=== PATIENT | female | born 1995 | race Caucasian/White ===

== ENCOUNTER 2018-06-09 19:50 | Outpatient (CLI) | payer MEDICAID ==
[2018-06-09 20:27] LABS: APPEARANCE,URINE CLEAR; COLOR,URINE YELLOW; GLUCOSE, URINE NEGATIVE (NEGATIVE)
[2018-06-09 20:28] LABS: BILIRUBIN,URINE NEGATIVE (NEGATIVE); KETONES,URINE NEGATIVE (NEGATIVE); LEUKOCYTE ESTERASE,URINE SMALL (NEGATIVE); NITRITE,URINE NEGATIVE (NEGATIVE); PROTEIN,URINE NEGATIVE (NEGATIVE); URINE SPECIFIC GRAVITY 1.012; UROBILINOGEN,URINE NEGATIVE mg/dL (<2.0)
[2018-06-09] MEDS ORDERED: RINGERS SOLUTION,LACTATED 1,000 ML IV PRN (20:36)
[2018-06-09 20:37] LABS: URINE AMPHETAMINES SCREEN NEGATIVE; URINE BARBITURATES SCREEN NEGATIVE; URINE BENZODIAZEPINES SCREEN NEGATIVE; URINE COCAINE SCREEN NEGATIVE; URINE MARIJUANA (THC) SCREEN NEGATIVE; URINE METHADONE SCREEN NEGATIVE; URINE PHENCYCLIDINE SCREEN NEGATIVE
--- NOTE | 2018-06-09 23:09 | RADIOLOGY REPORT (SQ) ---
EXAM DESCRIPTION: US LIMITED COMPLETED DATE/TME: 06/09/2018 00:00 CLINICAL HISTORY: 22 years, Female, cervical length for contractions COMPARISON: EXAM DESCRIPTION: CLINICAL HISTORY: cervical length for contractions COMPARISON: None. FINDINGS: heart rate is 140 bpm. Cervix length is 23 mm. No placenta previa is seen. IMPRESSION: Cervix length as above. TECHNIQUE: LIMITATIONS: None. FINDINGS: IMPRESSION: 2010 [facility] [employer]- All Rights Reserved
== END 2018-06-09 23:21 | disposition home or self-care (01) ==
LOC: LC 19:50
PROVIDERS: ATTEND Obstetrics & Gynecology
PROC: 4A1HXCZ Monitoring of Products of Conception, Cardiac Rate, External Approach (ICD-10-PCS; principal; 2018-06-09)
DX: O47.03 False labor before 37 completed weeks of gestation, third trimester (principal); Z3A.32 32 weeks gestation of pregnancy
CPT/HCPCS: 59025; 76815; 80307; 81001

== ENCOUNTER 2018-06-11 02:32 | Inpatient (IN) | payer MEDICAID ==
[2018-06-11] MEDS ORDERED: BETAMET ACET/BETAMET NA INJ 6 MG/1 ML ONE ×2 (02:58→03:43)
[2018-06-11] MEDS ORDERED: AMPICILLIN SODIUM 2 GM in NORMAL SALINE 100 ML IV SCH (03:00)
[2018-06-11] MEDS ORDERED: ERYTHROMYCIN LACTOBIONATE 250 MG in NORMAL SALINE 100 ML IV SCH (03:00)
[2018-06-11] MEDS ORDERED: BETAMET ACET/BETAMET NA INJ 6 MG/1 ML IM ONE (03:02)
[2018-06-11] MEDS ORDERED: MAGNESIUM SULFATE 20 GM/500 ML RTUINJ IV PRN ×2 (03:02→03:04)
[2018-06-11] MEDS ORDERED: RINGERS SOLUTION,LACTATED 1,000 ML IV PRN (03:05)
[2018-06-11] MEDS ORDERED: RINGERS SOLUTION,LACTATED 1,000 ML IV ONE (03:05)
[2018-06-11] MEDS ORDERED: MAGNESIUM SULFATE 4 GM/100 ML RTUPB IV ONE (03:17)
[2018-06-11] MEDS ORDERED: AMPICILLIN SOD INJ 2 GM VIAL ONE (03:18)
[2018-06-11] MEDS ORDERED: MAGNESIUM SULFATE 20 GM/500 ML RTUINJ IV ONE (03:18)
[2018-06-11] MEDS ORDERED: AMPICILLIN SOD INJ 2 GM VIAL IM SCH (03:30)
[2018-06-11] MEDS ORDERED: AMPICILLIN SOD INJ 2 GM VIAL IV SCH (03:30)
[2018-06-11] MEDS ORDERED: ERYTHROMYCIN INJ 500 MG VIAL IV SCH (03:30)
[2018-06-11 03:38] LABS: HEMATOCRIT 38.5 % (36.0-47.0); HEMOGLOBIN 13.6 g/dL (12.0-15.5); MEAN CORPUSCULAR HEMOGLOBIN 30.3 pg (27.0-33.4); MEAN CORPUSCULAR HGB CONC 35.4 g/dL (32.0-36.0); MEAN CORPUSCULAR VOLUME 86 fl (80-97); PLATELET COUNT 356 10^3/uL (150-450); RED BLOOD COUNT 4.49 10^6/uL (3.72-5.28); RED CELL DISTRIBUTION WIDTH 13.9 % (11.5-14.0); WHITE BLOOD COUNT 22.7 10^3/uL (4.0-10.5)
[2018-06-11 03:55] LABS: ABSOLUTE MONOCYTES # (MANUAL) 1.6 10^3/uL (0.1-1.4); ABSOLUTE NEUTROPHILS# (MANUAL) 18.2 10^3/uL (1.7-8.2); BASOPHILS % (MANUAL) 0 % (0-2); EOSINOPHILS % (MANUAL) 0 % (0-6); LYMPHOCYTES % (MANUAL) 13 % (13-45); MONOCYTES % (MANUAL) 7 % (3-13); SEGMENTED NEUTROPHILS % (MAN) 80 % (42-78); TOTAL CELLS COUNTED 100
[2018-06-11 03:56] LABS: OVALOCYTES SLIGHT; PLATELET COMMENT ADEQUATE; POIKILOCYTOSIS SLIGHT; POLYCHROMASIA SLIGHT; SCHISTOCYTES SLIGHT
[2018-06-11] MEDS ORDERED: ONDANSETRON HCL INJ/PF 4 MG/2 ML SDV IV ONE (04:20)
[2018-06-11] MEDS ORDERED: ONDANSETRON HCL INJ/PF 4 MG/2 ML SDV ONE (04:22)
[2018-06-11] MEDS ORDERED: ERYTHROMYCIN BASE 250 MG TABLET PO ONE ×2 (05:13→05:25)
[2018-06-11] MEDS ORDERED: LIDOCAINE 1% INJ-PF (10 MG/ML) 30 ML SDV ONE (05:37)
[2018-06-11] MEDS ORDERED: MISOPROSTOL 0.2 MG TABLET ONE (05:37)
[2018-06-11] MEDS ORDERED: OXYTOCIN/NORMAL SALINE 20 UNIT/1,000 ML RTUINJ ONE (05:37)
[2018-06-11] MEDS ORDERED: EPHEDRINE SULFATE INJ 50 MG/1 ML AMPULE ONE (05:38)
[2018-06-11] MEDS ORDERED: FENTANYL/BUPIVACAINE/NS/PF 300 MCG/150 ML RTUINJ EPI ONE (05:39)
[2018-06-11] MEDS ORDERED: BUPIVACAINE HCL 0.5 % INJ/PF 30 ML SDV ONE (05:39)
[2018-06-11 06:25] LABS: CHLAM PCR NOT DETECTED (NOT DETECT); GON PCR NOT DETECTED (NOT DETECT)
--- NOTE | 2018-06-11 06:56 | Admission Physical ---
Datetime Report Generated by CPN: 06/11/2018 06:56 CURRENT ADMISSION Chief Complaint: Uterine Contractions; Suspected Ruptured Membranes Indication for Induction: Not Applicable Admit Impression : , Intrauterine ; Ruptured Membranes Admit Plan: Admit to Unit; Initiate Labor Protocol ALLERGIES Medication Allergies: No Medication Allergies: latex Latex: Latex Allergies Food Allergies: N/A Environmental Allergies: N/A OBSTETRICAL HISTORY EDC: 08/02/2018 00:00 : 1 Para: 0 Term: 0 : 0 SAB: 0 IAB: 0 Ectopic: 0 Livin Cesareans: 0 VBACs: 0 Multiple Births: 0 Gestational Diabetes: No Rh Sensitization: No Incompetent Cervix: No BRUNO: No Infertility: No ART Treatment: No Uterine Anomaly: No IUGR: No Hx Previous C/S: No Macrosomia: No Hx Loss/Stillborn: No PIH: No Hx : No Placenta Previa/Abruption: No Depression/PP Depression: No PTL/PROM: No Post Hemorrhage: No Current Procedures: Ultrasound Obstetrical History Comments: g1- current SEE RECORDS Alcohol: No Marijuana : No Cocaine: No Other Illicit Drugs: No Cigarettes: Never Smoker. [id number] MEDICAL HISTORY Diabetes: No Blood Transfusion: No Pulmonary Disease (Asthma, TB): No Breast Disease: No Hypertension: No Hand Bulldozer Surgery: No Heart Disease: No Hosp/Surgery: No Autoimmune Disorder: No Anesthetic Complications: No Kidney Disease: Yes Abnormal Pap Smear: No Neuro/Epilepsy: No Psychiatric Disorders: No Other Medical Diseases: No Hepatitis/Liver Disease: No Significant Family History: No Varicosities/Phlebitis: No Trauma/Violence : No Thyroid Dysfunction: No Medical History Comments: one kidney smaller and frequent kidney infections INFECTIOUS HISTORY Gonorrhea: No Genital Herpes: No Chlamydia: No Tuberculosis: No Syphilis: No Hepatitis: No HIV/AIDS Exposure: No Rash or Viral Illness: No HPV: No PHYSICAL EXAM General: Normal HEENT: Normal Neurologic: Normal Thyroid: Deferred Heart: Normal Lungs: Normal Breast: Deferred Back: Normal Abdomen: Normal Genitourinary Exam: Normal Extremities: Normal DTRs: Normal Pelvic Type: Adequate Vital Signs: Reviewed VAGINAL EXAM Dilatation: 1 Effacement: 70 Station: -1 Contraction Comments: q 1-2 MEMBRANES Membranes: Ruptured Amniotic Fluid Color: Clear FETUS A EGA: 32.4 Monitoring: External US FHR- Baseline: 145 Variability: Moderate 6-25bpm Accelerations: 15X15 Decelerations: None FHR Category: Category I Presentation: Vertex Admit Comment: 22yo at 32+4ega presents for regular uterine ctx and PPROM. PPROM clear fluid at 0200. Pt actively ctx q 1-2 minutes. In ER cvx was 1cm. Upon arrival to labor and delivery 3cm and 1 hour later 4cm/c/0. Due to concern for imminent delivery pt requested epidural and epidural given. All care labs done since records are not available until office in [facility]. Pt evacuate TO here for [place] since her mother was here. BMZ given, Mag sulfate for Neuroprotection. Amp/Erythro ordered for latency. vtx by US. Pt reports she had US on the day previously in her office. Anticipate . NICU aware of concern for unstoppable labor. Will continue to request her records PLANS FOR LABOR AND DELIVERY Labor and Delivery: None Pain Management: Epidural Feeding Preference: Breast Benefit of Breast Feed Discussed: Yes Circumcision: N/A INFORMED CONSENT Informed Consent Obtained: Vaginal Delivery; Risks, Benefits and Alternatives Discussed Signature: with User ID: [email or web address]
[2018-06-11] MEDS ORDERED: NA PHOS,M-B/NA PHOS,DI-BA (ADULT) 133 ML ENEMA PR PRN (09:42)
[2018-06-11] MEDS ORDERED: MEASLES,MUMPS&RUBELLA VACC/PF 0.5 ML VIAL SUBCUT PRN (09:42)
[2018-06-11] MEDS ORDERED: DIPH/PERTUSS(ACELL)/TETANUS VAC/PF 0.5 ML SYR (>=10YO) IM PRN (09:42)
[2018-06-11] MEDS ORDERED: PROMETHAZINE HCL 25 MG SUPP.RECT PR PRN (09:42)
[2018-06-11] MEDS ORDERED: DIPHENHYDRAMINE HCL 25 MG CAPSULE PO PRN (09:42)
[2018-06-11] MEDS ORDERED: PROMETHAZINE HCL INJ 25 MG/1 ML VIAL IV PRN (09:42)
[2018-06-11] MEDS ORDERED: BENZOCAINE/MENTHOL AEROSOL SPRAY 56 ML TOP PRN (09:42)
[2018-06-11] MEDS ORDERED: PSEUDOEPHEDRINE HCL 30 MG TABLET PO PRN (09:42)
[2018-06-11] MEDS ORDERED: PROMETHAZINE HCL 25 MG TABLET PO PRN (09:42)
[2018-06-11] MEDS ORDERED: ACETAMINOPHEN 650 MG SUPP.RECT PR PRN (09:42)
[2018-06-11] MEDS ORDERED: OXYTOCIN/NORMAL SALINE 20 UNIT/1,000 ML RTUINJ IV PRN (09:42)
[2018-06-11] MEDS ORDERED: DIBUCAINE 1% OINTMENT 28 GM TP PRN (09:42)
[2018-06-11] MEDS ORDERED: MAGNESIUM HYDROXIDE SUSP 30 ML UDCUP PO PRN (09:42)
[2018-06-11] MEDS ORDERED: GLYCERIN/WITCH HAZEL LEAF 1 EACH MED..PAD TP PRN (09:42)
[2018-06-11] MEDS ORDERED: MISOPROSTOL 0.2 MG TABLET PR ONE (09:46)
[2018-06-11] MEDS ORDERED: IBUPROFEN 800 MG TABLET ONE (09:56)
[2018-06-11] MEDS ORDERED: ACETAMINOPHEN WITH CODEINE #3 TABLET ONE (09:56)
[2018-06-11] MEDS ORDERED: ERYTHROMYCIN BASE 250 MG TABLET PO SCH (12:00)
--- NOTE | 2018-06-11 12:05 | Delivery Summary ---
Del Sum A-C Datetime Report Generated by CPN: 06/11/2018 12:04 DELIVERY PERSONNEL DELIVERY PERSONNEL: [id number] Delivery Doctor:: Sharmaine Benton CNM Nurse Trust And Estates Attorney Certified:: Sharmaine Benton CNM Labor and Delivery Nurse:: Pamela Su RNfront line leader Nurse:: YUSUF Cruz Lead Burner Helper:: Dr. Baldemar Guevara Nursery Nurse:: CAROLA Velez Tech/SUPERVISOR NEWSPAPER DELIVERIES: Jody Mcdermott, ELECTRIC CRANE OPERATOR MATERNAL INFORMATION Delivery Anesthesia: Epidural Medications After Delivery: Pitocin Drip 20 Units/1000ml NSS; Cytotec 1000mcg Per Rectum/Vagina Meds After Delivery Comment: placed by provider Maternal Complications: None Provider Comments: care assumed when this patient was pushing with Dr. Albright. Pt. continued pushing and went on to deliver a viable baby girl in LOT position. Baby with weak cry and spontaneous respiratory effort spontaneously at . Nursery staff and Dr. Baldemar Guevara in room for delivery. Cord clamped x2 and cut and baby handed over to Nursery staff for evaluation. Cord blood collected (3vc noted). Placenta delivered spontaneously intact, fundus firm @ u but moderate bleeding noted. 1000mcg cytotec given rectally for prophylaxis. Several small clots out with fundal massage and minimal bleeding after that. Vaginal and perineal inspection revealed abrasion as stated. Baby stable but to nursery for further eval, mother remains in room stable. Apgars 7/9 per Nursery LABOR SUMMARY EDC: 08/02/2018 00:00 No. Babies in Womb: 1 Attempted: No Labor Anesthesia: Epidural LABOR INFORMATION Reason for Induction: Not Applicable Onset of Labor: 06/11/2018 02:30 Complete Dilatation: 06/11/2018 07:49 Oxytocin: N/A Group B Beta Strep: unknown Antibiotics # of Doses: 1 Antibiotics Time of Last Dose: 0351 Name of Antibiotic Given: Ampicillin 2gm Steroids Given: Partial Course Reason Steroids Not Administered: Not Applicable MEMBRANES Membranes Rupture Method: Spontaneous Rupture of Membranes: 06/11/2018 02:30 Length of Rupture (hr): 6.72 Amniotic Fluid Color: Clear Amniotic Fluid Amount: Small Amniotic Fluid Odor: Normal STAGES OF LABOR Stage 1 hr: 5 Stage 1 min: 19 Stage 2 hr: 1 Stage 2 min: 24 Stage 3 hr: 0 Stage 3 min: 4 Total Time in Labor hr: 6 Total Time in Labor min: 47 VAGINAL DELIVERY Episiotomy: None Laceration #1: None Laceration Extension #1: N/A Other Laceration: left labial abrasion Laceration Repair: Not Applicable Laceration Repair Note: hemostatic abrasion not repaired Sponge Count Correct: Yes Sharps Count Correct: Yes CSECTION DELIVERY Primary Indication: N/A Secondary Indication: N/A CSection Incidence: N/A Labor: N/A Elective: N/A CSection Incision: N/A BABY A INFORMATION Delivery Date/Time: 06/11/2018 09:13 Method of Delivery: Vaginal Born in Route : No : N/A Forceps: N/A Vacuum Extraction: N/A Shoulder Dystocia : No PRESENTATION/POSITION BABY A Presentation: Cephalic Cephalic Presentation: Vertex Vertex Position: Right Occipital Anterior Breech Presentation: N/A PLACENTA INFORMATION BABY A Placenta Delivery Time : 06/11/2018 09:17 Placenta Method of Delivery: Spontaneous Placenta Status: Delivered SCORES BABY A Heart Rate 1 min: >100 bpm Resp Effort 1 min: Slow, Irregular Reflex Irritability 1 min: Cough or Sneeze or Pulls Away Muscle Tone 1 min: Some Flexion of Extremities Color 1 min: Body Remy, Extremities Blue Resuscitation Effort 1 min: Tactile Stimulation SCORE 1 MIN: 7 Heart Rate 5 min: >100 bpm Resp Effort 5 min: Good Cry Reflex Irritability 5 min: Cough or Sneeze or Pulls Away Muscle Tone 5 min: Some Flexion of Extremities Color 5 min: Body Remy, Extremities Blue Resuscitation Effort 5 min: N/A SCORE 5 MIN: 8 INFANT INFORMATION BABY A Gestational Age at Delivery: 32.4 Gestational Status: - <34 Weeks Infant Outcome : Liveborn Infant Condition : Fair Sex: Female IDENTIFICATION BABY A Infant Verification Date/Time: 06/11/2018 09:21 ID Band Number: [id number] Mother's Name Verified: Yes Infant RN Verifying Infant: Sussy Camp RN Additional Verifying Personnel: Jalil Florez RN WEIGHT/LENGTH BABY A Infant Birthweight (gm): 1913 Weight (lb): 4 Weight (oz): 3 Infant Length (in): 18.00 Length (cm): 45.72 CORD INFORMATION BABY A No. Cord Vessels: 3 Nuchal Cord : N/A Cord Blood Taken: Yes-For Storage (Mom's Blood type +) Suction: None ASSESSMENT BABY A Complications: None Skin to Skin: No Lead Burner Helper/ALS Called : Yes Infant Care By: Dr Guevara/ Jalil Florez RN Transferred To: NICU BABY B INFORMATION : N/A SIGNATURES Assignment: Su Gaytan MD Signature: with User ID: [email or web address] : with User ID: [email or web address]
[2018-06-11] MEDS: DOCUSATE SODIUM 100 MG CAPSULE PO SCH ×2 (12:19→18:41)
[2018-06-11] MEDS: FERROUS SULFATE 325 MG TABLET PO SCH ×2 (12:19→18:41)
[2018-06-11] MEDS: FAMOTIDINE 20 MG TABLET PO SCH ×2 (12:19→21:24)
[2018-06-11] MEDS: PRENATAL VITAMIN W DHA CAPSULE PO SCH (12:20)
[2018-06-11] MEDS: SENNOSIDES/DOCUSATE 8.6-50 MG 1 EACH TABLET PO SCH (12:20)
[2018-06-11 13:24] LABS: RUBELLA IGG ANTIBODY 5.72 IU/mL
[2018-06-11 13:38] LABS: RUBELLA INTERPRETATION NEGATIVE
[2018-06-11] MEDS ORDERED: IBUPROFEN 800 MG TABLET PO SCH (14:00)
[2018-06-11] MEDS: IBUPROFEN 800 MG TABLET PO SCH (18:41)
[2018-06-12] MEDS: IBUPROFEN 800 MG TABLET PO SCH ×3 (02:43→18:04)
[2018-06-12 07:15] LABS: HEMATOCRIT 30.3 % (36.0-47.0); MEAN CORPUSCULAR HEMOGLOBIN 30.1 pg (27.0-33.4); MEAN CORPUSCULAR HGB CONC 34.5 g/dL (32.0-36.0); MEAN CORPUSCULAR VOLUME 87 fl (80-97); PLATELET COUNT 347 10^3/uL (150-450); RED BLOOD COUNT 3.48 10^6/uL (3.72-5.28); RED CELL DISTRIBUTION WIDTH 13.9 % (11.5-14.0); WHITE BLOOD COUNT 25.5 10^3/uL (4.0-10.5)
[2018-06-12 08:23] LABS: HEMOGLOBIN 10.5 g/dL (12.0-15.5)
[2018-06-12] MEDS ORDERED: MEASLES,MUMPS&RUBELLA VACC/PF 0.5 ML VIAL SUBCUT PRN (09:30)
[2018-06-12] MEDS ORDERED: PROMETHAZINE HCL INJ 25 MG/1 ML VIAL IV PRN (09:30)
[2018-06-12] MEDS ORDERED: DIPH/PERTUSS(ACELL)/TETANUS VAC/PF 0.5 ML SYR (>=10YO) IM PRN (09:30)
[2018-06-12] MEDS: PRENATAL VITAMIN W DHA CAPSULE PO SCH (09:34)
[2018-06-12] MEDS: FERROUS SULFATE 325 MG TABLET PO SCH ×2 (09:34→18:04)
[2018-06-12] MEDS: FAMOTIDINE 20 MG TABLET PO SCH (09:35)
[2018-06-12] MEDS: SENNOSIDES/DOCUSATE 8.6-50 MG 1 EACH TABLET PO SCH (09:35)
[2018-06-12] MEDS: DOCUSATE SODIUM 100 MG CAPSULE PO SCH ×2 (09:35→18:04)
--- NOTE | 2018-06-12 09:51 | PDOC PROGRESS REPORT ---
Subjective-OB Progress Note for:: 06/12/18 Physical Exam (OB) Vital Signs: Temp Pulse Resp BP Pulse Ox 98.2 F 64 18 105/45 L 98 06/12/18 07:23 06/12/18 07:23 06/12/18 07:23 06/12/18 07:23 06/12/18 07:23 Intake & Output 06/11/18 06/12/18 06/13/18 06:59 06:59 06:59 Weight 108.862 kg - PIH/Pre-Eclampsia DTR's: 2 + Clonus: Negative Headache: Absent Epigastric Pain: No Visual Changes: No - Lochia Lochia Amount: Small 10-25 ml Lochia Color: Rubra/Red - Abdomen Description: Soft, Round Hernia Present: No Bowel Sounds: Normoactive Flatus Presence: Present Stool: Yes Fundal Description: Firm, Midline Fundal Height: u/u - u/2 Objective-Diagnostic Laboratory: 06/12/18 06:54 06/12/18 06:54 WBC 25.5 H RBC 3.48 L Hgb 10.5 L D Hct 30.3 L MCV 87 MCH 30.1 MCHC 34.5 RDW 13.9 Plt Count 347
[2018-06-12 12:40] LABS: HEPATITIS C VIRUS AB <0.1 s/co ratio (0.0-0.9)
[2018-06-12 13:18] LABS: HEPATITS B SURFACE ANTIGEN Negative (Negative); VARICELLA ZOSTER IGG AB 249 index (Immune >16)
[2018-06-13] MEDS: IBUPROFEN 800 MG TABLET PO SCH ×3 (02:32→18:05)
[2018-06-13] MEDS: FAMOTIDINE 20 MG TABLET PO SCH ×2 (04:46→09:50)
[2018-06-13] MEDS: PRENATAL VITAMIN W DHA CAPSULE PO SCH (09:50)
[2018-06-13] MEDS: DOCUSATE SODIUM 100 MG CAPSULE PO SCH ×2 (09:50→18:06)
[2018-06-13] MEDS: SENNOSIDES/DOCUSATE 8.6-50 MG 1 EACH TABLET PO SCH (09:50)
[2018-06-13] MEDS: FERROUS SULFATE 325 MG TABLET PO SCH ×2 (09:50→18:06)
--- NOTE | 2018-06-13 11:20 | PDOC DISCHARGE SUMMARY ---
Final Diagnosis Discharge Date: 06/13/18 Discharge Data - Discharge Medication Prescriptions: Ibuprofen [Motrin 800 mg Tablet] 800 mg PO Q8H PRN #60 tablet PRN Reason: Home Medications: Prenat 115/Iron Fum/Folic/Dss [ 19 Tablet] 1 tab PO DAILY 06/09/18 Ibuprofen [Motrin 800 mg Tablet] 800 mg PO Q8H PRN #60 tablet 06/13/18 Ibuprofen [Motrin 800 mg Tablet] 800 mg PO Q8HP PRN #60 tablet 06/13/18 Procedures: NST Intrapartum Procedure(s): Spontaneous Vaginal Delivery - Diagnosis Test Laboratory: Temp Pulse Resp BP Pulse Ox 98.1 F 71 16 132/65 H 98 06/13/18 07:58 06/13/18 07:58 06/13/18 07:58 06/13/18 07:58 06/13/18 07:58 06/11/18 06/12/18 03:24 06:54 RBC 4.49 3.48 L Hgb 13.6 10.5 L D Hct 38.5 30.3 L - Discharge information/Instructions Discharge Activity: Balance Activity w/Rest, Pelvic Rest Discharge Diet: Regular Disposition: HOME, SELF-CARE Follow up with: [facility] in: 3, Weeks
[2018-06-13 15:56] VITALS: BP 126/63
== END 2018-06-13 18:10 | disposition home or self-care (01) | DRG 775 ==
LOC: LC 02:32 → LR 03:32 → 2S 11:47
PROVIDERS: ADMIT Student in an Organized Health Care Education/Training Program; ATTEND Student in an Organized Health Care Education/Training Program
PROC: 10E0XZZ Delivery of Products of Conception, External Approach (ICD-10-PCS; principal; 2018-06-11)
PROC: 4A1HXCZ Monitoring of Products of Conception, Cardiac Rate, External Approach (ICD-10-PCS; 2018-06-11)
DX: O60.14X0 Preterm labor third trimester with preterm delivery third trimester, not applicable or unspecified (principal); Z23 Encounter for immunization; Z91.040 Latex allergy status; Z3A.32 32 weeks gestation of pregnancy; Z37.0 Single live birth
CPT/HCPCS: 36415; 84112; 85025; 85027; 86592; 86701; 86762; 86787; 86803; 86804; 86850; 86900; 86901; 87081; 87340; 87491; 87591; 88307; 90707; 90715; 94760; 96372; J0290; J0702; J1364; J2405; J2590; J3010; J3475; J3490

== ENCOUNTER 2018-10-20 21:04 | Emergency (ER) | payer MEDICAID ==
[2018-10-20 21:32] VITALS: BP 132/99
[2018-10-20 22:31] LABS: APPEARANCE,URINE SLIGHTLY-CLOUDY; BILIRUBIN,URINE NEGATIVE (NEGATIVE); COLOR,URINE YELLOW; GLUCOSE, URINE NEGATIVE (NEGATIVE); KETONES,URINE NEGATIVE (NEGATIVE); LEUKOCYTE ESTERASE,URINE TRACE (NEGATIVE); NITRITE,URINE POSITIVE (NEGATIVE); PROTEIN,URINE NEGATIVE (NEGATIVE); UROBILINOGEN,URINE NEGATIVE mg/dL (<2.0)
[2018-10-20] MEDS ORDERED: ONDANSETRON ODT 4 MG TAB (6 TAB/ER DISP) PO PRN (23:03)
[2018-10-20] MEDS ORDERED: CEPHALEXIN 500 MG CAPSULE PO ONE (23:03)
--- NOTE | 2018-10-20 23:06 | ER Document Report ---
HPI - HPI Patient complains to provider of: dysuria Time Seen by Provider: 10/20/18 22:54 Pain Level: 4 Context: Patient is a 22-year-old female that comes emergency department for chief complaint of worsening cramps and dysuria, she states she P blood earlier as well. She started she is developing nausea. She denies particular flank pain, she denies vomiting, fever, vaginal bleeding or discharge. States she has had many urinary tract infections in the past. Denies any surgeries, daily medications, or medical history otherwise. - REPRODUCTIVE LMP: 10/13/18 Reproductive: DENIES: : Past Medical History - General Information source: Patient - Social History Smoking Status: Never Smoker Frequency of alcohol use: None Drug Abuse: None Lives with: Family Family History: Reviewed & Not Pertinent - Medical History Medical History: Negative Surgical Hx: Negative - Immunizations Immunizations up to date: Yes Hx Diphtheria, Pertussis, Tetanus Vaccination: Yes Vertical Provider Document - CONSTITUTIONAL General Appearance: WD/WN, No Apparent Distress - INFECTION CONTROL TRAVEL OUTSIDE OF THE [place] IN LAST 30 DAYS: No - HEENT HEENT: Atraumatic, Normocephalic - NECK Neck: Normal Inspection - RESPIRATORY Respiratory: Breath Sounds Normal, No Respiratory Distress - CARDIOVASCULAR Cardiovascular: Regular Rate, Regular Rhythm - GI/ABDOMEN Gastrointestinal: Abdomen Soft, Abdomen Tender - There is minimal suprapubic tenderness on exam, general abdomen unremarkable, no guarding, no rebound tenderness - BACK Back: Normal Inspection. negative: CVA Tenderness-Right, CVA Tenderness-Left - MUSCULOSKELETAL/EXTREMETIES Musculoskeletal/Extremeties: MAEW, FROM, Non-Tender - NEURO Level of Consciousness: Awake, Alert, Appropriate Course - Re-evaluation Re-evalutation: Patient is smiling, talkative, well-appearing. She has mild suprapubic tenderness on exam, unremarkable abdomen otherwise. Very low suspicion of acute abdomen. No CVA tenderness or concerning symptoms reported suggesting pyelonephritis. Suspect she has cystitis. Placed on antibiotics, provided with nausea medication on request, discussed follow-up and return precautions. Delma ent states understanding and agreement. - Vital Signs Vital signs: Temp Pulse Resp BP Pulse Ox 98.2 F 89 18 132/99 H 100 10/20/18 21:29 10/20/18 21:29 10/20/18 21:29 10/20/18 21:29 10/20/18 21:29 - Laboratory Laboratory results interpreted by me: 10/20/18 22:10 Urine Blood MODERATE H Urine Nitrite POSITIVE H Ur Leukocyte Esterase TRACE H Discharge - Discharge Clinical Impression: Dysuria Urinary tract infection Qualifiers: Urinary tract infection type: acute cystitis Hematuria presence: with hematuria Qualified Code(s): N30.01 - Acute cystitis with hematuria Condition: Stable Disposition: HOME, SELF-CARE Additional Instructions: Your evaluation is most consistent with cystitis (a bladder infection). Take antibiotics as prescribed to completion. Take provided Zofran if needed for nausea. Follow-up with primary care. Return if you worsen including vomiting, developing fever, severe abdominal pain, or any other concerning or worsening symptoms. Prescriptions: Cephalexin Monohydrate [Keflex 500 mg Capsule] 500 mg PO BID 7 Days #14 capsule Forms: Return to Work
== END 2018-10-20 23:36 | disposition home or self-care (01) ==
LOC: ER 21:04
DX: N30.01 Acute cystitis with hematuria (principal); R11.0 Nausea
CPT/HCPCS: 81001; 81025; 99283

== ENCOUNTER 2019-01-24 13:15 | Emergency (ER) | payer MEDICAID ==
[2019-01-24] MEDS ORDERED: KETOROLAC TROMETHAMINE INJ/PF 30 MG/1 ML SDV IM ONE (13:43)
--- NOTE | 2019-01-24 13:44 | ER Document Report ---
ED Medical Screen (RME) - General Chief Complaint: Flank Pain Stated Complaint: FLANK PAIN Time Seen by Provider: 01/24/19 13:38 Mode of Arrival: Ambulatory Information source: Patient TRAVEL OUTSIDE OF THE [place] IN LAST 30 DAYS: No - HPI Patient complains to provider of: BILATERAL FLANK PAIN Notes: 01/24/19 13:43 Patient here with complaints of bilateral flank pain. Is been on for about a week but progressively getting worse. The patient has a history of kidney infections and this feels similar. She has nausea, no vomiting. No fever. No history of kidney stones. Family history of kidney stones. Exam Nontoxic, no distress. Mild bilateral CVA tenderness to percussion. Lungs clear and equal throughout. Heart sounds normal. Plan CBC, CMP, lipase, urine, urine . IM Toradol. An initial examination was made on the patient as part of the triage process, and it was determined a more comprehensive evaluation was necessary. Initial labs were ordered and patient was transferred to another provider in the ED who assumed care and finished evaluation and plan. - Related Data Allergies/Adverse Reactions: latex Allergy (Verified 01/24/19 13:18) Past Medical History - Social History Frequency of alcohol use: None Drug Abuse: None Renal/ Medical History: Denies: Hx Peritoneal Dialysis - Immunizations Immunizations up to date: Yes Hx Diphtheria, Pertussis, Tetanus Vaccination: Yes Physical Exam - Vital signs Vitals: Temp Pulse Resp BP Pulse Ox 98.2 F 99 16 141/77 H 97 01/24/19 13:22 01/24/19 13:22 01/24/19 13:22 01/24/19 13:22 01/24/19 13:22 Course - Vital Signs Vital signs: Temp Pulse Resp BP Pulse Ox 98.2 F 99 16 141/77 H 97 01/24/19 13:22 01/24/19 13:22 01/24/19 13:22 01/24/19 13:22 01/24/19 13:22
[2019-01-24 14:06] LABS: APPEARANCE,URINE CLOUDY; BILIRUBIN,URINE NEGATIVE (NEGATIVE); GLUCOSE, URINE NEGATIVE (NEGATIVE); KETONES,URINE NEGATIVE (NEGATIVE); LEUKOCYTE ESTERASE,URINE SMALL (NEGATIVE); NITRITE,URINE POSITIVE (NEGATIVE); PROTEIN,URINE 30 mg/dL (NEGATIVE); URINE SPECIFIC GRAVITY 1.014
[2019-01-24 14:07] LABS: COLOR,URINE ORANGE
[2019-01-24 14:22] LABS: ABSOLUTE EOSINOPHILS # (AUTO) 0.1 10^3/uL (0.0-0.6); ABSOLUTE LYMPHOCYTES (AUTO) 1.8 10^3/uL (0.5-4.7); ABSOLUTE MONOCYTES (AUTO) 1.2 10^3/uL (0.1-1.4); ABSOLUTE NEUT (AUTO) 14.3 10^3/uL (1.7-8.2); BASOPHILS % (AUTO) 0.3 % (0-2); EOSINOPHILS % (AUTO) 0.5 % (0-6); HEMATOCRIT 39.9 % (36.0-47.0); HEMOGLOBIN 13.4 g/dL (12.0-15.5); LYMPHOCYTES % (AUTO) 10.1 % (13-45); MEAN CORPUSCULAR HEMOGLOBIN 26.9 pg (27.0-33.4); MEAN CORPUSCULAR HGB CONC 33.5 g/dL (32.0-36.0); MEAN CORPUSCULAR VOLUME 80 fl (80-97); PLATELET COUNT 406 10^3/uL (150-450); RED BLOOD COUNT 4.98 10^6/uL (3.72-5.28); RED CELL DISTRIBUTION WIDTH 14.3 % (11.5-14.0); SEGMENTED NEUTROPHILS % (AUTO) 82.1 % (42-78); TOTAL CELLS COUNTED % (AUTO) 100 %; WHITE BLOOD COUNT 17.4 10^3/uL (4.0-10.5)
[2019-01-24 14:40] LABS: ALANINE AMINOTRANSFERASE 18 U/L (9-52); ALBUMIN 3.9 g/dL (3.5-5.0); ALKALINE PHOSPHATASE 97 U/L (38-126); ANION GAP 14 (5-19); ASPARTATE AMINO TRANSFERASE 13 U/L (14-36); BILIRUBIN,DIRECT 0.2 mg/dL (0.0-0.4); BILIRUBIN,TOTAL 0.4 mg/dL (0.2-1.3); BLOOD UREA NITROGEN 8 mg/dL (7-20); CALCIUM 9.3 mg/dL (8.4-10.2); CARBON DIOXIDE 26 mmol/L (22-30); CHLORIDE 102 mmol/L (98-107); GLUCOSE 102 mg/dL (75-110); LIPASE 53.4 U/L (23-300); POTASSIUM 3.7 mmol/L (3.6-5.0); SODIUM 141.5 mmol/L (137-145); TOTAL PROTEIN 6.7 g/dL (6.3-8.2)
[2019-01-24] MEDS ORDERED: NORMAL SALINE 1000 ML 1,000 ML IV ONE (15:43)
[2019-01-24] MEDS ORDERED: CEFTRIAXONE 1 GM/D5W RTU 1 GM/50 ML RTUPB IV ONE (15:44)
--- NOTE | 2019-01-24 16:32 | ER Document Report ---
ED General - General Chief Complaint: Flank Pain Stated Complaint: FLANK PAIN Time Seen by Provider: 01/24/19 13:38 Primary Care Provider: JACKY WISEMAN MD [ACTIVE STAFF] - Follow up in 3-5 days (primary care. ) Mode of Arrival: Ambulatory Notes: Patient is a 23-year-old female that presents to the emergency department for chief complaint of flank pain and concern for kidney infection. Patient states she started having symptoms earlier in the week, of dysuria, sweats at home, and flank pain, she was drinking a lot of fluid and drinking cranberry juice to see if it worked but her symptoms worsened over the past 2 days, where she is waking up in cold sweat, had nausea but no vomiting, and continued to have bilateral flank pain to the point she decided come to the emergency department. She has had bad kidney infections in the past, and that so she is concerned about. She currently rates her pain as a 6 out of 10 describes it as a constant aching sensation in both sides of her back. Denies having any chest pain, shortness of breath or difficulty breathing, anterior abdominal pain, or diarrhea. Past Medical History: History of UTIs, denies history of kidney stones Past Surgical History: Denies surgical history Social History: Denies tobacco, alcohol or drug use. Family History: Reviewed and noncontributory for presenting illness Allergies: Reviewed, see documented allergy list. REVIEW OF SYSTEMS: Other than noted above, the 12 point review of systems was reviewed with the patient and were negative, all pertinent findings are included in the HPI. PHYSICAL EXAMINATION: Vital signs reviewed, nursing noted reviewed. GENERAL: Patient appears uncomfortable, but otherwise in no acute distress. HEAD: Atraumatic, normocephalic. EYES: Eyes appear normal, extraocular movements intact, sclera anicteric, conjunctiva are normal. ENT: nares patent, oropharynx clear without exudates. Moist mucous membranes. NECK: Normal range of motion, supple without lymphadenopathy LUNGS: Breath sounds clear to auscultation bilaterally and equal. No wheezes rales or rhonchi. HEART: Heart rate borderline tachycardic, regular rhythm. No audible murmur. ABDOMEN: Soft, bilateral flank tenderness with palpation, normoactive bowel sounds. No rebound, guarding, or rigidity. No masses appreciated. EXTREMITIES: Nontender, good range of motion, no pitting or edema. NEUROLOGICAL: No focal neurological deficits. Moves all extremities spontaneously Motor and sensory grossly intact on exam. PSYCH: Normal mood, normal affect. SKIN: Warm, Dry, normal turgor, no rashes or lesions noted on exposed skin TRAVEL OUTSIDE OF THE [place] IN LAST 30 DAYS: No - Related Data Allergies/Adverse Reactions: latex Allergy (Verified 01/24/19 13:18) Past Medical History - General Information source: Patient - Social History Smoking Status: Never Smoker Frequency of alcohol use: None Drug Abuse: None Family History: Reviewed & Not Pertinent Patient has suicidal ideation: No Patient has homicidal ideation: No Renal/ Medical History: Denies: Hx Peritoneal Dialysis - Immunizations Immunizations up to date: Yes Hx Diphtheria, Pertussis, Tetanus Vaccination: Yes Physical Exam - Vital signs Vitals: Temp Pulse Resp BP Pulse Ox 98.2 F 99 16 141/77 H 97 01/24/19 13:22 01/24/19 13:22 01/24/19 13:22 01/24/19 13:22 01/24/19 13:22 Course - Re-evaluation Re-evalutation: Patient seen and examined vital signs reviewed. Laboratory data and/or imaging were ordered as appropriate for the patient's presenting symptoms and complaint, with consideration of any critical or life threatening conditions that may be associated with their obtained history and exam as noted above. Patient was treated with IV fluid, morphine, and Zofran Results were reviewed when available and demonstrated leukocytosis, and UA concerning for significant urinary tract infection, given patient's clinical presentation of it with pyelonephritis, is therefore given a dose of IV Rocephin. The patient was re-evaluated and was improved Evaluation was most consistent with pyelonephritis, will discharge the patient home medication to take for pain, as well as antibiotic, Keflex 500 mg 3 times daily, for 7 days advised follow-up with primary care. Results were discussed with the patient at this point, after careful consideration I feel that that patient can be discharged from the emergency department, the patient was educated treatments and reasons to return to the emergency department based on their presumed diagnosis as noted above, they were advised to followup with a primary care physician in 2-3 days. Patient was agreeable to plan of care. *Note is created using voice recognition software and may contain spelling, syntax or grammatical errors. Laboratory 01/24/19 01/24/19 01/24/19 13:40 14:05 14:05 WBC 17.4 H RBC 4.98 Hgb 13.4 Hct 39.9 MCV 80 MCH 26.9 L MCHC 33.5 RDW 14.3 H Plt Count 406 Seg Neutrophils % 82.1 H Lymphocytes % 10.1 L Monocytes % 7.0 Eosinophils % 0.5 Basophils % 0.3 Absolute Neutrophils 14.3 H Absolute Lymphocytes 1.8 Absolute Monocytes 1.2 Absolute Eosinophils 0.1 Absolute Basophils 0.0 Sodium 141.5 Potassium 3.7 Chloride 102 Carbon Dioxide 26 Anion Gap 14 BUN 8 Creatinine 0.74 Est GFR ( Amer) > 60 Est GFR (Non-Af Amer) > 60 Glucose 102 Calcium 9.3 Total Bilirubin 0.4 Direct Bilirubin 0.2 Neonat Total Bilirubin Not Reportable Neonat Direct Bilirubin Not Reportable Neonat Indirect Bili Not Reportable AST 13 L ALT 18 Alkaline Phosphatase 97 Total Protein 6.7 Albumin 3.9 Lipase 53.4 Urine Color ORANGE Urine Appearance CLOUDY Urine pH 5.0 Ur Specific [place] 1.014 Urine Protein 30 H Urine Glucose (UA) NEGATIVE Urine Ketones NEGATIVE Urine Blood NEGATIVE Urine Nitrite POSITIVE H Urine Bilirubin NEGATIVE Urine Urobilinogen 4.0 H Ur Leukocyte Esterase SMALL H Urine WBC (Auto) >182 Urine RBC (Auto) 7 Urine Bacteria (Auto) 3+ Urine WBC Clumps MOD Squamous Epi Cells Auto 5 U Non-Squamous Epis Auto 1 Urine Mucus (Auto) RARE Urine Ascorbic Acid NEGATIVE Urine HCG, Qual NEGATIVE - Vital Signs Vital signs: Temp Pulse Resp BP Pulse Ox 98.2 F 83 18 135/65 H 99 01/24/19 13:22 01/24/19 17:13 01/24/19 17:13 01/24/19 17:13 01/24/19 17:13 - Laboratory Result Diagrams: 01/24/19 14:05 01/24/19 14:05 Laboratory results interpreted by me: 01/24/19 01/24/19 01/24/19 13:40 14:05 14:05 WBC 17.4 H MCH 26.9 L RDW 14.3 H Seg Neutrophils % 82.1 H Lymphocytes % 10.1 L Absolute Neutrophils 14.3 H AST 13 L Urine Protein 30 H Urine Nitrite POSITIVE H Urine Urobilinogen 4.0 H Ur Leukocyte Esterase SMALL H Discharge - Discharge Clinical Impression: Acute pyelonephritis Condition: Stable Disposition: HOME, SELF-CARE Instructions: Pyelonephritis ([facility]) Additional Instructions: Please complete the entire course of antibiotics as prescribed, and please follow-up with the primary care physician sometime early this week coming up. Prescriptions: RX: Cephalexin Monohydrate [Keflex 500 mg Capsule] 500 mg PO TID 7 Days #21 capsule RX: Naproxen 500 mg PO BID PRN #20 tablet PRN Reason: back pain Forms: Return to Work Referrals: JACKY WISEMAN MD [ACTIVE STAFF] - Follow up in 3-5 days (primary care. )
[2019-01-24] MEDS ORDERED: ONDANSETRON HCL INJ/PF 4 MG/2 ML SDV IV ONE (16:46)
[2019-01-24 17:14] VITALS: BP 135/65
== END 2019-01-24 17:14 | disposition home or self-care (01) ==
LOC: ER 13:15
DX: N10 Acute pyelonephritis (principal); R61 Generalized hyperhidrosis; R11.0 Nausea
CPT/HCPCS: 99284; 96372; 96365; 36415; 83690; 85025; 81025; 80053; 81001; J1885; J7030; J0696

== ENCOUNTER 2019-09-17 11:32 | Emergency (ER) | payer MEDICAID ==
[2019-09-17] MEDS ORDERED: IBUPROFEN 800 MG TABLET PO ONE (13:07)
--- NOTE | 2019-09-17 13:09 | ER Document Report ---
ED Medical Screen (RME) - General Chief Complaint: Cold Symptoms Stated Complaint: DIZZINESS/HEADACHE/VOMITING Time Seen by Provider: 09/17/19 13:05 Mode of Arrival: Ambulatory Information source: Patient Notes: 23-year-old female presents emergency department with recent sinus infection and is just finishing her antibiotic she has been on for 7 days. She reports yesterday she had a severe headache. Today she still had a headache took Tylenol without relief and she reports she had syncope episodes x2. Reports she feels lightheaded when standing up. No complaints of vomiting fever diarrhea. She reports she had syncope episode when she was younger but she does not know why. I have greeted and performed a rapid initial assessment of this patient. A comprehensive ED assessment and evaluation of the patient, analysis of test results and completion of the medical decision making process will be conducted by additional ED providers. TRAVEL OUTSIDE OF THE [place] IN LAST 30 DAYS: No - Related Data Allergies/Adverse Reactions: latex Allergy (Verified 09/17/19 13:05) Past Medical History Renal/ Medical History: Denies: Hx Peritoneal Dialysis - Immunizations Immunizations up to date: Yes Hx Diphtheria, Pertussis, Tetanus Vaccination: Yes Physical Exam - Vital signs Vitals: Temp Pulse Resp BP Pulse Ox 97.8 F 79 16 148/81 H 100 09/17/19 11:44 09/17/19 11:44 09/17/19 11:44 09/17/19 11:44 09/17/19 11:44 Course - Vital Signs Vital signs: Temp Pulse Resp BP Pulse Ox 97.8 F 79 16 148/81 H 100 09/17/19 11:44 09/17/19 11:44 09/17/19 11:44 09/17/19 11:44 09/17/19 11:44
[2019-09-17 13:43] LABS: ABSOLUTE BASOPHILS # (AUTO) 0.1 10^3/uL (0.0-0.2); ABSOLUTE EOSINOPHILS # (AUTO) 0.1 10^3/uL (0.0-0.6); ABSOLUTE LYMPHOCYTES (AUTO) 1.7 10^3/uL (0.5-4.7); ABSOLUTE MONOCYTES (AUTO) 0.6 10^3/uL (0.1-1.4); BASOPHILS % (AUTO) 0.4 % (0-2); EOSINOPHILS % (AUTO) 0.4 % (0-6); HEMATOCRIT 42.1 % (36.0-47.0); HEMOGLOBIN 14.1 g/dL (12.0-15.5); LYMPHOCYTES % (AUTO) 10.2 % (13-45); MEAN CORPUSCULAR HEMOGLOBIN 27.6 pg (27.0-33.4); MEAN CORPUSCULAR HGB CONC 33.5 g/dL (32.0-36.0); MEAN CORPUSCULAR VOLUME 83 fl (80-97); MONOCYTES % (AUTO) 3.7 % (3-13); PLATELET COUNT 339 10^3/uL (150-450); RED CELL DISTRIBUTION WIDTH 14.8 % (11.5-14.0); SEGMENTED NEUTROPHILS % (AUTO) 85.3 % (42-78); TOTAL CELLS COUNTED % (AUTO) 100 %; WHITE BLOOD COUNT 16.5 10^3/uL (4.0-10.5)
[2019-09-17 14:00] LABS: APPEARANCE,URINE CLEAR; BILIRUBIN,URINE NEGATIVE (NEGATIVE); COLOR,URINE YELLOW; GLUCOSE, URINE NEGATIVE (NEGATIVE); KETONES,URINE NEGATIVE (NEGATIVE); LEUKOCYTE ESTERASE,URINE NEGATIVE (NEGATIVE); NITRITE,URINE NEGATIVE (NEGATIVE); PROTEIN,URINE NEGATIVE (NEGATIVE); URINE SPECIFIC GRAVITY 1.015; UROBILINOGEN,URINE NEGATIVE mg/dL (<2.0)
[2019-09-17 14:04] LABS: A TYPE INFLUENZA AG NEGATIVE (NEGATIVE); B INFLUENZA AG NEGATIVE (NEGATIVE)
[2019-09-17 14:10] LABS: ALBUMIN 4.1 g/dL (3.5-5.0); ALKALINE PHOSPHATASE 88 U/L (38-126); ANION GAP 11 (5-19); ASPARTATE AMINO TRANSFERASE 21 U/L (14-36); BILIRUBIN,DIRECT 0.3 mg/dL (0.0-0.4); BILIRUBIN,TOTAL 0.3 mg/dL (0.2-1.3); BLOOD UREA NITROGEN 12 mg/dL (7-20); CALCIUM 9.9 mg/dL (8.4-10.2); CARBON DIOXIDE 27 mmol/L (22-30); CHLORIDE 101 mmol/L (98-107); GLUCOSE 122 mg/dL (75-110); POTASSIUM 3.8 mmol/L (3.6-5.0); TOTAL PROTEIN 7.3 g/dL (6.3-8.2)
[2019-09-17] MEDS ORDERED: IBUPROFEN 800 MG TABLET ONE (15:18)
--- NOTE | 2019-09-17 16:26 | EKG REPORT ---
SEVERITY:- NORMAL ECG - SINUS RHYTHM : Confirmed by: Latanya Beasley MD 17-Sep-2019 16:24:51
--- NOTE | 2019-09-17 21:03 | ER Document Report ---
ED General - General Chief Complaint: Dizziness Stated Complaint: DIZZINESS/HEADACHE/VOMITING Time Seen by Provider: 09/17/19 13:05 Primary Care Provider: [facility] [Provider Group] - Follow up tomorrow (can use for PCP. call to set up new patient appointment, definitely takes [place]edicaid) ESTEE GODFREY MD [COMMUNITY BASED STAFF] - Follow up as needed (this doc is taking new pt and is an option for pcp you'd have to call to ensure takes medicaid though ) Mode of Arrival: Ambulatory TRAVEL OUTSIDE OF THE [place] IN LAST 30 DAYS: No - HPI Notes: 23 otherwise healthy female who had been free of her CARRILLO of similar character and assc sx constellation as today for months presents today ambulatory for gradual onset bitemporal CARRILLO, an episode of vomiting. denies double visoin. focal wekaness or other vision change or sensory changes. denies ataxia/confusion/speech changes. no recent trauma or febrile illnesses. no deviaiton from pattern of prior migraine w/ vomitin in past. no new neck sx/pain. no skin changes FH: kidney stones kidney disease. gma brca, aunt and mom stage 4 ESRD - Related Data Allergies/Adverse Reactions: latex Allergy (Verified 09/17/19 13:05) Past Medical History - General Information source: Patient - Social History Smoking Status: Never Smoker Family History: Reviewed & Not Pertinent Patient has suicidal ideation: No Patient has homicidal ideation: No Renal/ Medical History: Denies: Hx Peritoneal Dialysis - Immunizations Immunizations up to date: Yes Hx Diphtheria, Pertussis, Tetanus Vaccination: Yes Review of Systems - Review of Systems Constitutional: No symptoms reported EENT: No symptoms reported Cardiovascular: No symptoms reported Respiratory: No symptoms reported Gastrointestinal: No symptoms reported Genitourinary: No symptoms reported Female Genitourinary: No symptoms reported Musculoskeletal: No symptoms reported Skin: No symptoms reported Hematologic/Lymphatic: No symptoms reported Neurological/Psychological: No symptoms reported Physical Exam - Vital signs Vitals: Temp Pulse Resp BP Pulse Ox 97.8 F 79 16 148/81 H 100 09/17/19 11:44 09/17/19 11:44 09/17/19 11:44 09/17/19 11:44 09/17/19 11:44 Interpretation: Normal - General General appearance: Appears well, Alert - HEENT Head: Normocephalic, Atraumatic Eyes: Normal Pupils: PERRL - Respiratory Respiratory status: No respiratory distress Chest status: Nontender Breath sounds: Normal Chest palpation: Normal - Cardiovascular Rhythm: Regular Heart sounds: Normal auscultation Murmur: No - Abdominal Inspection: Normal Distension: No distension Bowel sounds: Normal Tenderness: Nontender Organomegaly: No organomegaly - Back Back: Normal, Nontender - Extremities General upper extremity: Normal inspection, Nontender, Normal color, Normal ROM, Normal temperature General lower extremity: Normal inspection, Nontender, Normal color, Normal ROM, Normal temperature, Normal weight bearing. No: Kamran's sign - Neurological Neuro grossly intact: Yes Cognition: Normal Orientation: AAOx4 August Coma Scale Eye Opening: Spontaneous August Coma Scale Verbal: Oriented [place] Coma Scale Motor: Obeys Commands [place] Coma Scale Total: 15 Speech: Normal Motor strength normal: LUE, RUE, LLE, RLE Sensory: Normal - Psychological Associated symptoms: Normal affect, Normal mood - Skin Skin Temperature: Warm Skin Moisture: Dry Skin Color: Normal Course - Re-evaluation Re-evalutation: 09/27/19 01:27 pt serial neuro rechecks remained nonfocal and intact. CARRILLO significantly improved s/p 800 ibu . - Vital Signs Vital signs: Temp Pulse Resp BP Pulse Ox 98.1 F 67 16 148/76 H 98 09/17/19 21:07 09/17/19 21:07 09/17/19 21:07 09/17/19 21:07 09/17/19 21:07 - Laboratory Result Diagrams: 09/17/19 13:30 09/17/19 13:30 Laboratory results interpreted by me: 09/17/19 09/17/19 09/17/19 13:30 13:30 13:30 WBC 16.5 H RDW 14.8 H Lymph % (Auto) 10.2 L Absolute Neuts (auto) 14.0 H Seg Neutrophils % 85.3 H Glucose 122 H Urine Blood MODERATE H Discharge - Discharge Clinical Impression: Migraine Qualifiers: Migraine type: unspecified Status migrainosus presence: without status migrainosus Intractability: not intractable Qualified Code(s): G43.909 - Migraine, unspecified, not intractable, without status migrainosus Condition: Good Disposition: HOME, SELF-CARE Additional Instructions: your vital signs and lab work including kidney function looked good in the ER today and your neuro examination was intact. take 600mg ibuprofen and 5mg reglan if you notice any signs of CARRILLO or nausea starting and rest so it doesn't worsen. also ensure you are hydrating in the next few days to catch back up and not get dehydrated since this also can make you at risk for migraines. also ensure you get adequate hours of sleep each night. Prescriptions: Ibuprofen 200 mg PO Q6HP PRN 3 Days #30 tablet PRN Reason: Migraine Metoclopramide HCl [Reglan] 5 mg PO Q6HP PRN #10 tablet PRN Reason: Forms: Return to Work Referrals: [facility] [Provider Group] - Follow up tomorrow (can use for PCP. call to set up new patient appointment, definitely takes smedicaid) ESTEE GODFREY MD [COMMUNITY BASED STAFF] - Follow up as needed (this doc is taking new pt and is an option for pcp you'd have to call to ensure takes medicaid though )
[2019-09-17 21:07] VITALS: BP 148/76
== END 2019-09-17 21:56 | disposition home or self-care (01) ==
LOC: ER 11:32
DX: G43.909 Migraine, unspecified, not intractable, without status migrainosus (principal); R42 Dizziness and giddiness; R11.10 Vomiting, unspecified
CPT/HCPCS: 93005; 99284; 36415; 85025; 81025; 80053; 81001; 87804; 93010; J3490

== ENCOUNTER 2020-03-17 23:29 | Emergency (ER) | payer OTHER, MEDICAID ==
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
[2020-03-18] MEDS ORDERED: CYCLOBENZAPRINE HCL 10 MG TABLET PO ONE (02:32)
[2020-03-18] MEDS ORDERED: IBUPROFEN 800 MG TABLET PO ONE (02:32)
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
[2020-03-18 02:44] VITALS: BP 138/79
== END 2020-03-18 02:45 | disposition home or self-care (01) ==
LOC: ER 23:29
DX: S50.12XA Contusion of left forearm, initial encounter (principal); S80.11XA Contusion of right lower leg, initial encounter; M54.5 Low back pain; M79.661 Pain in right lower leg; M79.632 Pain in left forearm; M25.512 Pain in left shoulder; V43.52XA Car driver injured in collision with other type car in traffic accident, initial encounter; W22.11XA Striking against or struck by driver side automobile airbag, initial encounter; F17.210 Nicotine dependence, cigarettes, uncomplicated; Z91.040 Latex allergy status
CPT/HCPCS: 72110; 81025; 99283

== ENCOUNTER 2020-04-13 15:53 | Emergency (ER) | payer MEDICAID, OTHER ==
[2020-04-13] MEDS ORDERED: ONDANSETRON 4 MG TAB.RAPDIS PO ONE (19:03)
[2020-04-13] MEDS ORDERED: NORMAL SALINE 1000 ML 1,000 ML IV ONE (19:03)
[2020-04-13] MEDS ORDERED: ACETAMINOPHEN 325 MG TABLET PO ONE (19:03)
--- NOTE | 2020-04-13 19:26 | RADIOLOGY REPORT (SQ) ---
EXAM DESCRIPTION: CHEST SINGLE VIEW IMAGES COMPLETED DATE/TIME: 04/13/2020 6:09 pm REASON FOR STUDY: shortness of breath. COMPARISON: None. EXAM PARAMETERS: NUMBER OF VIEWS: One view. TECHNIQUE: Single frontal radiographic view of the chest acquired. RADIATION DOSE: NA LIMITATIONS: None. FINDINGS: LUNGS AND PLEURA: No opacities, masses or pneumothorax. No pleural effusion. MEDIASTINUM AND HILAR STRUCTURES: No masses. Contour normal. HEART AND VASCULAR STRUCTURES: Heart normal in size. Normal vasculature. BONES: No acute findings. HARDWARE: None in the chest. OTHER: No other significant finding. IMPRESSION: NO ACUTE RADIOGRAPHIC FINDING IN THE CHEST. TECHNICAL DOCUMENTATION: JOB ID: [id number] 2010 [employer]- All Rights Reserved Reading location - IP/workstation name: [email or web address]
--- NOTE | 2020-04-13 19:43 | ER Document Report ---
ED Flu Like - General TRAVEL OUTSIDE OF THE [place] IN LAST 30 DAYS: No <WILLIAM NELSON - Last Filed: 04/13/20 20:03> <MURPHY ORTIZ - Last Filed: 04/14/20 06:50> - General Chief Complaint: Flu Symptoms Stated Complaint: SHORTNESS OF BREATH Time Seen by Provider: 04/13/20 18:48 Notes: 24-year-old female presenting with fevers, chills, shortness of breath and cough during on Saturday. She states that her boyfriend was diagnosed with COVID on Saturday. She states that her symptoms have progressively gotten worse. States that she had a fever of 102 at home which she was taking Tylenol for which helped alleviate the chills as well as to lower the fever. States that she has had a productive mucousy cough for about 2 days. Patient has not taken ibuprofen or Tylenol today. She states she has been nauseous and had a few episodes of vomiting. She denies any abdominal pain, chest pain or additional symptoms. (WILLIAM NELSON) - Related Data Allergies/Adverse Reactions: latex Allergy (Verified 04/13/20 18:43) Past Medical History - Social History Smoking Status: Never Smoker Chew tobacco use (# tins/day): No Family History: Reviewed & Not Pertinent Patient has homicidal ideation: No Renal/ Medical History: Denies: Hx Peritoneal Dialysis - Immunizations Immunizations up to date: Yes Hx Diphtheria, Pertussis, Tetanus Vaccination: Yes <WILLIAM NELSON - Last Filed: 04/13/20 20:03> Review of Systems - Review of Systems Constitutional: See HPI EENT: See HPI Cardiovascular: No symptoms reported Respiratory: See HPI Gastrointestinal: No symptoms reported Genitourinary: No symptoms reported Female Genitourinary: No symptoms reported Musculoskeletal: No symptoms reported Skin: No symptoms reported <WILLIAM NELSON - Last Filed: 04/13/20 20:03> Physical Exam - Vital signs Interpretation: Tachycardic <WILLIAM NELSON - Last Filed: 04/13/20 20:03> - Vital signs Vitals: Temp Pulse Resp BP Pulse Ox 99.4 F 120 H 20 148/89 H 99 04/13/20 15:57 04/13/20 15:57 04/13/20 15:57 04/13/20 15:57 04/13/20 15:57 - Notes Notes: Adult General: GENERAL: Alert, interacts well. No acute distress HEAD: Normocephalic, atraumatic EYES: Pupils equal, round and reactive to light. Extraocular movements intact. ENT: Oral mucosa moist, tongue midline. Oropharynx unremarkable. Airway patent. Nares patent, sinuses nontender, ear canals unremarkable, TMs intact. No Trismus. NECK: Full range of motion. Supple. Trachea midline. No lymphadenopathy. LUNGS: Clear to auscultation bilaterally, no wheezes, rales, or rhonchi. No respiratory distress. Nontender chest wall. HEART: Regular rate and rhythm. No murmurs, rubs or gallops. ABDOMEN: Soft, mild diffuse tenderness. Nondistended. (-) [place] sign. Bowel sounds present in all 4 quadrants. No rebound, guarding or masses. GENITOURINARY: Deferred EXTREMITIES: Moves all 4 extremities spontaneously. BACK: No cervical, thoracic, lumbar midline tenderness. No saddle anesthesia, normal distal neurovascular exam. Moves all extremities with full range of motion. NEUROLOGICAL: Alert and oriented x3. Normal speech. Strength 5/ 5 in all extremities. PSYCH: Normal affect, normal mood. SKIN: Warm, dry, normal turgor. No rashes or lesions noted. (WILLIAM NELSON) Course - Laboratory Result Diagrams: 04/13/20 19:36 04/13/20 19:36 <WILLIAM NELSON - Last Filed: 04/13/20 20:03> - Laboratory Result Diagrams: 04/13/20 19:36 04/13/20 19:36 <MURPHY ORTIZ - Last Filed: 04/14/20 06:50> - Re-evaluation Re-evalutation: 04/13/20 19:41 Patient's chest x-ray is unremarkable. 04/13/20 19:42 Pending results of labs and EKG. 04/13/20 20:03 Patient was turned over to Murphy Ortiz PA-C who will follow up on the labs. (WILLIAM NELSON) Patient is well-appearing on exam, clear lungs, soft abdomen, unremarkable exam otherwise. CBC unremarkable, chest x-ray does not show pneumonia, urinalysis unremarkable, COVID test is pending. However patient's chemistry is abnormal. She has hypocalcemia which is significant at 6.3, she has hypokalemia of 3.3, as result I checked magnesium and this was noted to be low at 1.4. Patient was given 2 g magnesium, ionized calcium was checked and is only slightly low, patient's albumin is low as well, she is obese. EKG is unremarkable, patient does not have any symptoms on my reevaluation fortunately. I did discuss with Dr. Wood, he agrees with magnesium supplementation here and at home, [id number] calcium supplement, and close laboratory recheck. Patient can have this closely rechecked by primary care. No additional recommendations. Discussed in detail with patient, she states understanding and agreement, stable and well-appearing at time of discharge. (MURPHY ORTIZ) - Vital Signs Vital signs: Temp Pulse Resp BP Pulse Ox 98.4 F 85 18 131/79 H 99 04/14/20 01:30 04/14/20 01:30 04/14/20 01:30 04/14/20 01:30 04/14/20 01:30 - Laboratory Laboratory results interpreted by me: 04/13/20 04/13/20 04/13/20 19:30 19:36 19:36 RDW 15.1 H Sodium 135.9 L Potassium 3.3 L Chloride 111 H Carbon Dioxide 21 L Anion Gap 4 L Calcium 6.3 L* Ionized Calcium Kendrick Magnesium 1.4 L AST 46 H Total Protein 5.4 L Albumin 2.8 L Urine Blood 04/13/20 04/13/20 22:20 23:30 RDW Sodium Potassium Chloride Carbon Dioxide Anion Gap Calcium Ionized Calcium Kendrick 1.04 L Magnesium AST Total Protein Albumin Urine Blood MODERATE H Discharge <WILLIAM NELSON - Last Filed: 04/13/20 20:03> <MURPHY ORTIZ - Last Filed: 04/14/20 06:50> - Discharge Clinical Impression: Person under investigation for COVID-19, Chills, Hypomagnesemia, Hypocalcemia, Hypokalemia, Cough Vomiting Qualifiers: Vomiting type: unspecified Vomiting Intractability: non-intractable Nausea presence: unspecified Qualified Code(s): R11.10 - Vomiting, unspecified Condition: Stable Disposition: HOME, SELF-CARE Instructions: COVID-19 Guidance for Persons Under Investigation Additional Instructions: Your evaluation is most consistent with a viral illness, no pneumonia or additional infections are seen, you will be contacted with your test results probably over the next 2 to 3 days. See additional instructions for quarantine below. Take the nausea medication if needed, drink plenty of fluids and rest. Take Tylenol and ibuprofen if needed for fever/chills/body aches. Symptoms should gradually resolve. Your magnesium, calcium, and potassium were all too low. Recommendation is to take magnesium oxide as prescribed, start an [id number] calcium supplement, increase potassium in your diet, and have this closely rechecked with primary care. Return for any concerning symptoms including difficulty breathing, uncontrolled vomiting, passing out, or any other concerning symptoms. As a person under investigation for COVID-19, the [place] Department of Health and Human Services (division on public health) advises you to adhere to the following guidance until your test results are reported to you. If your test result is positive, you will receive additional information from your provider and your local health department at that time. Remain at home until you are cleared by the health provider or public health authorities. Keep a log of visitors to your home, notify any visitors to your home of your isolation status. If you plan to move to a new address or leave the [facility], notify the local health department in your County. Call your Doctor or seek care if you have an urgent medical need. Before seeking medical care, call him to get instructions from the provider before arriving at the medical office, clinic, or hospital. Notify them that you are being tested for the virus (COVID-19) so that arrangements can be made, as necessary, to prevent transmission to others in the healthcare setting. Next, notify the local health department in your county. If a medical emergency arises and you need to call 911, inform the first responders that you are being tested for the virus that causes COVID-19. Next, notify the local health department in your county. Prescriptions: Magnesium Oxide 250 mg PO DAILY #30 tablet Promethazine HCl [Phenergan 25 mg Tablet] 25 mg PO Q6H PRN #20 tablet PRN Reason:
[2020-04-13 19:50] LABS: ABSOLUTE LYMPHOCYTES (AUTO) 1.3 10^3/uL (0.5-4.7); ABSOLUTE MONOCYTES (AUTO) 0.5 10^3/uL (0.1-1.4); ABSOLUTE NEUT (AUTO) 5.1 10^3/uL (1.7-8.2); BASOPHILS % (AUTO) 0.6 % (0-2); EOSINOPHILS % (AUTO) 0.1 % (0-6); HEMATOCRIT 42.5 % (36.0-47.0); HEMOGLOBIN 14.4 g/dL (12.0-15.5); LYMPHOCYTES % (AUTO) 19.1 % (13-45); MEAN CORPUSCULAR HEMOGLOBIN 27.3 pg (27.0-33.4); MEAN CORPUSCULAR VOLUME 80 fl (80-97); MONOCYTES % (AUTO) 6.8 % (3-13); PLATELET COUNT 211 10^3/uL (150-450); RED BLOOD COUNT 5.28 10^6/uL (3.72-5.28); RED CELL DISTRIBUTION WIDTH 15.1 % (11.5-14.0); SEGMENTED NEUTROPHILS % (AUTO) 73.4 % (42-78); TOTAL CELLS COUNTED % (AUTO) 100 %
[2020-04-13 20:08] LABS: ALBUMIN 2.8 g/dL (3.5-5.0); ALKALINE PHOSPHATASE 79 U/L (38-126); ASPARTATE AMINO TRANSFERASE 46 U/L (14-36); BILIRUBIN,TOTAL 0.2 mg/dL (0.2-1.3); BLOOD UREA NITROGEN 9 mg/dL (7-20); GLUCOSE 86 mg/dL (75-110); POTASSIUM 3.3 mmol/L (3.6-5.0); TOTAL PROTEIN 5.4 g/dL (6.3-8.2)
[2020-04-13 20:13] LABS: CARBON DIOXIDE 21 mmol/L (22-30); CHLORIDE 111 mmol/L (98-107)
[2020-04-13 20:28] LABS: ANION GAP 4 (5-19)
[2020-04-13 20:31] LABS: CALCIUM 6.3 mg/dL (8.4-10.2)
[2020-04-13] MEDS: MAGNESIUM SULFATE/D5W 1 GM/100 ML RTUPB IV SCH ×2 (22:24→23:04)
[2020-04-13 23:41] LABS: APPEARANCE,URINE CLEAR; BILIRUBIN,URINE NEGATIVE (NEGATIVE); COLOR,URINE YELLOW; GLUCOSE, URINE NEGATIVE (NEGATIVE); KETONES,URINE NEGATIVE (NEGATIVE); LEUKOCYTE ESTERASE,URINE NEGATIVE (NEGATIVE); NITRITE,URINE NEGATIVE (NEGATIVE); PROTEIN,URINE NEGATIVE (NEGATIVE); URINE SPECIFIC GRAVITY 1.013; UROBILINOGEN,URINE NEGATIVE mg/dL (<2.0)
[2020-04-14] MEDS ORDERED: ONDANSETRON ODT 4 MG TAB (6 TAB/ER DISP) PO PRN (00:07)
[2020-04-14 01:35] VITALS: BP 131/79
--- NOTE | 2020-04-14 09:24 | EKG REPORT ---
SEVERITY:- ABNORMAL ECG - SINUS RHYTHM NONSPECIFIC T ABNORMALITIES, DIFFUSE LEADS BORDERLINE PROLONGED QT INTERVAL : Confirmed by: Lorena Blackwood 14-Apr-2020 09:23:29
== END 2020-04-14 01:30 | disposition home or self-care (01) ==
LOC: ER 15:53
DX: U07.1 COVID-19 (principal); E83.42 Hypomagnesemia; E83.51 Hypocalcemia; E87.6 Hypokalemia; R11.10 Vomiting, unspecified; R05 Cough; R06.02 Shortness of breath; R50.9 Fever, unspecified; R00.0 Tachycardia, unspecified; Z20.828 Contact with and (suspected) exposure to other viral communicable diseases
CPT/HCPCS: 93005; 99285; 96361; 96365; 96366; 36415; 83735; 85025; 87635; 81025; 80053; 81001; 82330; 71045; 93010; J3490; S0119; J3475; J7030; C9803

== ENCOUNTER 2020-04-15 00:05 | Emergency (ER) | payer MEDICAID ==
[2020-04-15 00:29] VITALS: BP 150/80
== END 2020-04-15 03:10 | disposition left against medical advice (07) ==
LOC: ER 00:05
DX: Z53.21 Procedure and treatment not carried out due to patient leaving prior to being seen by health care provider (principal); Z20.828 Contact with and (suspected) exposure to other viral communicable diseases; R42 Dizziness and giddiness

== ENCOUNTER → 2020-06-29 | Outpatient (CLI) | payer MEDICAID ==
--- NOTE | 2020-06-29 13:34 | RADIOLOGY REPORT (SQ) ---
EXAM DESCRIPTION: L SPINE 2 VIEWS IMAGES COMPLETED DATE/TIME: 06/29/2020 12:58 pm REASON FOR STUDY: S39.012A STRAIN OF MUSCLE, FASCIA AND TENDON OF LOWER BACK, INIT S39.012A STRAIN OF MUSCLE, FASCIA AND TENDON OF LOWER BACK, COMPARISON: None. NUMBER OF VIEWS: Two views. TECHNIQUE: AP and lateral radiographic images acquired of the lumbar spine. LIMITATIONS: None. FINDINGS: MINERALIZATION: Normal. SEGMENTATION: Normal. No transitional anatomy. ALIGNMENT: Minimal dextroscoliosis. VERTEBRAE: Maintained height. No fracture or worrisome bone lesion. DISCS: Preserved height. No significant osteophytes or end plate irregularity. POSTERIOR ELEMENTS: Spina bifida occulta at S1. HARDWARE: None in the spine. PARASPINAL SOFT TISSUES: Normal. PELVIS: Intact as visualized. No fractures or worrisome bone lesions. SI joints intact. OTHER: No other significant finding. IMPRESSION: Minimal scoliosis. No acute finding in the lumbar spine. TECHNICAL DOCUMENTATION: JOB ID: [id number] 2010 [employer]- All Rights Reserved Reading location - IP/workstation name: [email or web address]
--- NOTE | 2020-06-29 13:34 | RADIOLOGY REPORT (SQ) ---
EXAM DESCRIPTION: T SPINE AP/LAT IMAGES COMPLETED DATE/TIME: 06/29/2020 12:58 pm REASON FOR STUDY: S39.012A STRAIN OF MUSCLE, FASCIA AND TENDON OF LOWER BACK, INIT S39.012A STRAIN OF MUSCLE, FASCIA AND TENDON OF LOWER BACK, COMPARISON: None. NUMBER OF VIEWS: Two views. TECHNIQUE: AP and lateral radiographic images acquired of the thoracic spine. LIMITATIONS: None. FINDINGS: MINERALIZATION: Normal. ALIGNMENT: Minimal scoliosis. VERTEBRAE: No fracture or bone lesion. Maintained height, normal segmentation. DISCS: No significant loss of height or significant narrowing. No large osteophytes. HARDWARE: None in the spine. MEDIASTINUM AND SOFT TISSUES: Normal heart size and aortic contour. No soft tissue abnormality. VISUALIZED LUNG [place]: Clear. OTHER: No other significant finding. IMPRESSION: Minimal scoliosis. No acute finding. TECHNICAL DOCUMENTATION: JOB ID: [id number] 2010 [employer]- All Rights Reserved Reading location - IP/workstation name: [email or web address]
== END ==
LOC: RAD 12:03
PROVIDERS: ATTEND Nurse Practitioner
DX: S39.012A Strain of muscle, fascia and tendon of lower back, initial encounter (principal); X58.XXXA Exposure to other specified factors, initial encounter; M41.84 Other forms of scoliosis, thoracic region
CPT/HCPCS: 72070; 72100